=== PATIENT | female | born 1990 | race Caucasian/White ===

== ENCOUNTER 2016-08-06 15:28 | Emergency (ER) | payer OTHER ==
[~2016-08-06] VITALS: Ht 157.5 cm; Wt 68.4 kg
[~2016-08-06 15:28] MED LIST: IBUP-1050 PO
[2016-08-06 15:40] VITALS: TEMP 36.7; Ht 157.5 cm; Wt 68.4 kg
[2016-08-06] MEDS ORDERED: OXYC1TAB3 PO (15:55)
[2016-08-06] MEDS ORDERED: CLC/300 PO (15:55)
--- NOTE | 2016-08-06 15:56 | EMERGENCY ROOM VISIT NOTE ---
ED Visit Note First contact with patient: 15:43 CHIEF COMPLAINT: Toothache HISTORY OF PRESENT ILLNESS: This 26-year-old female patient presented to the emergency department via private vehicle with a progressive toothache for past 2 days. The patient believes it is coming from left upper posterior wisdom tooth. The pain is now steady and severe and radiates to the face. The patient has a dentist appointment set up for August 30 of which she is to have an extraction of her wisdom tooth. They rate their pain a 10/10 and the ibuprofen and Tylenol they have been taking has not relieved the pain. Denies facial swelling or fever. The patient denies any discharge from the mouth. REVIEW OF SYSTEMS: A 6 system review of systems was completed with positives and pertinent negatives listed in the HPI. ALLERGIES: As noted below MEDICATIONS: As noted below PMH: No pertinent past medical history SOCIAL HISTORY: Patient lives locally and is employed. PHYSICAL EXAM: Vitals are noted on the nurse's note and reviewed by myself. Vital signs stable. Temperature 36.7C orally. GENERAL: 26 rolled female, in no acute distress, nondiaphoretic, well-developed well-nourished. Mouth: The left upper posterior molar tooth is protruding laterally from the gumline without any discharge or signs of an abscess. The remainder of the pharynx and tonsils are without erythema, edema, or exudate. The airway is patent. There is no facial swelling, cervical or submandibular lymphadenopathy. The patient appears uncomfortable and in pain. The patient has overall fair dental hygiene. There is tenderness palpation overlying the tooth in the left upper posterior molar region. EARS: External auditory canals clear, tympanic membranes pearly rock without erythema or effusion bilaterally. ED COURSE: Patient was seen and evaluated as above. After obtaining a thorough history and physical examination was evident the patient is expressing pain secondary to her wisdom teeth pressing against other teeth. She appears stable for outpatient management. Should he has a dentist appointment set up. She will be treated in the outpatient setting with a short course of antibiotics in case early small developing infection, as well as pain medication. I will escalate to use prescription pain medication as she is already tried Tylenol and ibuprofen. She is to return with worsening of her symptoms. She was educated upon worrisome symptoms which to return, had questions on discharge, and was discharged home in good condition. No evidence of meningitis or sherwin angina on exam. In the evaluation and treatment of this patient, the following differential diagnoses were considered: Periapical Abscess, Osteonecrosis of the Jaw, Dental Fracture, Dental Caries, Sherwin's Angina, Vincent's Angina, Facial Cellulitis. In the treatment of this patient controlled medication was utilized and therefore the [facility], Prescription Drug Monitoring Program website was utilized to look up this patient. No concerns were identified that would prohibit or alter my treatment decision. Problem List Medical Problems: (1) No significant past medical history Status: Chronic Current/Historical Medications Scheduled Clindamycin HCl (Clindamycin HCl), 1 CAP PO TID Ibuprofen (Advil), 400 MG PO PRN UD Scheduled PRN Oxycodone Ir (Roxicodone Ir), 1-2 TAB PO Q4H PRN for Pain Allergies Coded Allergies: Penicillins (Verified Allergy, Severe, DIFFICULTY BREATHING, 08/06/16) Amoxicillin (Verified Allergy, Unknown, ANAPHYLAXIS, 08/06/16) Sulfa Antibiotics (Verified Allergy, Unknown, Hives, 08/06/16) Reported by PT. Vital Signs Date Time Temp Pulse Resp B/P (MAP) Pulse Ox O2 Delivery O2 Flow Rate FiO2 08/06/16 16:22 80 15 133/75 97 Room Air 08/06/16 15:40 36.7 117 16 134/68 92 Room Air Departure Information Impression Primary Impression: Odontalgia Dispostion Home / Self-Care Condition GOOD Prescriptions Clindamycin HCl (Clindamycin HCl) 300 Mg Cap 1 CAP PO TID for 7 Days, #21 CAP Prov: Eh Abel PA-C 08/06/16 Oxycodone Ir (Roxicodone Ir) 5 Mg Tab 1-2 TAB PO Q4H Y for Pain, #20 TAB For Initial Treatment Prov: Eh Abel PA-C 08/06/16 Referrals Diya Mejía DO (PCP) Patient Instructions My [facility] Additional Instructions You have been treated in the Emergency Department for Dental Pain. You have received pain medicine in the emergency department which impairs your ability to operate a vehicle. It is illegal for you to drive after receiving these medicines. You have been prescribed OXY IR to be used for pain control. This is a narcotic medication. You cannot drive or consume alcohol while on this medicine. This medicine should only be used for pain that cannot be controlled with over-the- counter pain medicines. You were prescribed Clindamycin to be taken three times daily. This is an antibiotic. All antibiotics have the potential to cause diarrhea. Stop this medication and contact a medical provider if you were to develop any significant adverse side effects including: wheezing, shortness of breath, passing out, vomiting, or a diffuse rash. Always take antibiotics as directed and COMPLETE the ENTIRE course regardless of the improvement of your symptoms. For pain control, you can use the following rzpm-ovx-auqbona medicines (if >12 yo): - Regular strength (325mg/tab) Tylenol (acetaminophen) 2 tabs every 4-6 hours as needed. Do not exceed 12 tablets in a 24 hour period. Avoid taking more than 3 grams (3000 mg) of Tylenol per day. This includes any other sources of acetaminophen you may take on a regular basis. - Regular strength (200 mg/tab) Advil (ibuprofen) 1-2 tabs every 4-6 hours as needed. Do not exceed a dose of 3200 mg per day. Refrain from smoking cigarettes or using chewing tobacco until you have been evaluated by your dentist. Keeping beverages lukewarm and consuming soft foods can decrease your pain. Warm compresses over the affected area may offer some relief. You MUST seek evaluation of your dental pain by a dentist following your visit to the Emergency Department. The Emergency Department is not capable of treating dental issues long-term. You should call your dentist as soon as possible to make an appointment for evaluation of your dental pain. Return to the emergency department if you develop the following symptoms despite treatment course outlined above: fever, intractable pain, increased redness, swelling, or purulent discharge. Your blood pressure was found to be slightly elevated today. Please follow up with family doctor regarding this. Please return to the emergency department with any new/concerning symptoms.
[2016-08-06 16:22] VITALS: BP 133/75; PULSE 80; O2SAT 97
== END 2016-08-06 16:24 | disposition home or self-care (01) ==
LOC: C.EDB 15:40 → C.EDD 16:24
DX: K08.89 Other specified disorders of teeth and supporting structures (principal); Z88.0 Allergy status to penicillin; Z88.1 Allergy status to other antibiotic agents; Z88.2 Allergy status to sulfonamides

== ENCOUNTER 2016-10-28 23:30 | Emergency (ER) | payer OTHER ==
[~2016-10-28] VITALS: Ht 157.5 cm; Wt 69.2 kg
[~2016-10-28 23:30] MED LIST changes: +OXYC1TAB3 PO
[2016-10-28 23:34] VITALS: BP 150/91; PULSE 106; TEMP 37.1; O2SAT 98; Ht 157.5 cm; Wt 69.2 kg
[2016-10-28] MEDS ORDERED: CLINDAMYCIN 150MG HOME PACK PO ONE (23:45)
[2016-10-28] MEDS ORDERED: CLIN300C2 PO (23:46)
--- NOTE | 2016-10-28 23:53 | EMERGENCY ROOM VISIT NOTE ---
ED Visit Note First contact with patient: 23:38 CHIEF COMPLAINT: Toothache HISTORY OF PRESENT ILLNESS: This 26 year old female patient presented to the emergency department with a progressive toothache for past 2 days. The patient believes it is coming from a left upper wisdom tooth. The patient was going to have this removed about 2 months ago, but had automobile issues and missed her appointment. She has yet to reschedule. The pain is now steady and severe and radiates to the face. They rate their pain a 8/10 and the ibuprofen and Tylenol they have been taking has not relieved the pain. Denies facial swelling or fever. The patient denies any discharge from the mouth. REVIEW OF SYSTEMS: A 6 system review of systems was completed with positives and pertinent negatives listed in the HPI. ALLERGIES: Penicillin, sulfa MEDICATIONS: See EMR PMH: See EMR SOCIAL HISTORY: Employed at the facility here PHYSICAL EXAM: Vitals are noted on the nurse's note and reviewed by myself. Vital signs stable. GENERAL: White female, in no acute distress, nondiaphoretic, well-developed well -nourished. Mouth: The left upper posterior wisdom tooth , #16, is carious, impacted, and the gum is swollen and tender around it, without any discharge or signs of an abscess. The remainder of the pharynx and tonsils are without erythema, edema, or exudate. The airway is patent. There is no facial swelling, cervical or submandibular lymphadenopathy. The patient appears uncomfortable and in pain. The patient has overall fair dental hygiene. EARS: External auditory canals clear, tympanic membranes pearly rock without erythema or effusion bilaterally. HEART: Regular rate and rhythm without murmur gallop or rub LUNG: Clear to auscultation bilateral ED COURSE: Physical exam and history were performed. Nursing notes and EMR were reviewed. The patient has dental pain for the past 2 days. Her left upper wisdom tooth appears to be impacted and is the likely cause of her discomfort. She will be started on clindamycin and asked to follow with her dentist for definitive care. She was invited back to the ER with any new, worsening, or concerning symptoms. Problem List Medical Problems: (1) No significant past medical history Status: Chronic Current/Historical Medications Scheduled Clindamycin Hcl (Cleocin), 300 MG PO QID Scheduled PRN Ibuprofen (Advil), 400 MG PO Q4 PRN for Pain Allergies Coded Allergies: Penicillins (Verified Allergy, Severe, DIFFICULTY BREATHING, 10/28/16) Amoxicillin (Verified Allergy, Unknown, ANAPHYLAXIS, 10/28/16) Sulfa Antibiotics (Verified Allergy, Unknown, Hives, 10/28/16) Reported by PT. Vital Signs Date Time Temp Pulse Resp B/P (MAP) Pulse Ox O2 Delivery O2 Flow Rate FiO2 10/28/16 23:34 37.1 106 18 150/91 98 Room Air Departure Information Impression Primary Impression: Pain, dental Dispostion Home / Self-Care Condition GOOD Prescriptions Clindamycin Hcl (CLEOCIN) 300 Mg Cap 300 MG PO QID for 10 Days, #40 CAP Prov: Berto Mishra PA-C 10/28/16 Forms HOME CARE DOCUMENTATION FORM, IMPORTANT VISIT INFORMATION Patient Instructions My [facility] Additional Instructions You were seen and evaluated today on an emergency basis only. This is not a substitute for, or an effort to provide, complete comprehensive medical care. It is not possible to recognize and treat all injuries or illnesses in a single emergency department visit. For this reason it is recommended that you followup with a dentist as soon as possible for definitive care. For baseline pain relief you may alternate ibuprofen and acetaminophen every 4 hours for pain control. Take 600 mg ibuprofen (Advil) and then 4 hours later take 1000 mg acetaminophen (Tylenol). Do not take more than 3000 mg acetaminophen in a single day. Take clindamycin 300 mg 4 times daily for the next 10 days. We recommend that you take this yogurt or probiotic as it can upset your stomach. You are welcome to return to the emergency department anytime with new, worsening, or concerning symptoms.
== END 2016-10-29 00:02 | disposition home or self-care (01) ==
LOC: C.EDB 23:31
DX: K08.89 Other specified disorders of teeth and supporting structures (principal)

== ENCOUNTER 2018-05-05 07:38 | Inpatient (IN) ==
[2018-05-05] MEDS ORDERED: LACTATED RINGER'S 1,000 ML IV PRN (08:47)
[2018-05-05] MEDS ORDERED: OXYTOCIN 30 UNITS/500 ML BAG IV PRN (08:47)
[2018-05-05] MEDS ORDERED: DINOPROSTONE 10 MG INSERT PV ONE (08:47)
--- NOTE | 2018-05-05 08:55 | History & Physical Report ---
Date of Service May 05, 2018 Assessment & Plan (1) Gestational diabetes mellitus (GDM): 28 yo at 39.4 wks with GDMA2, on insulin VSS Afebrile FHR reassuring GBS negative Plan admit, monitor, labs, pharmacy consult for insulin management Cervical ripening/ cervidil History of Present Illness Chief Complaint: Induction Primary Care Provider: Diya Mejía Patient is a 28 yo at 39.4 wks scheduled for IOL at term for GDMA2, on insulin No complaints No LOF/VB +FM No PACHECO/ Change in vision/ epig or RUQ pain Her has been complicated by 1) GDMA2, 20 u insulin in am 2) Smokes: 15 cig/day Allergies Allergy/AdvReac Type Severity Reaction Status Date / Time Penicillins Allergy Severe DIFFICULTY Verified 10/28/16 23:33 BREATHING amoxicillin Allergy Unknown ANAPHYLAXIS Verified 10/28/16 23:33 Sulfa (Sulfonamide Allergy Unknown Hives Verified 10/28/16 23:33 Antibiotics) Home Medications Home Medications Medication Instructions Recorded Confirmed Type Vitamin 1 tab PO DAILY 05/05/18 05/05/18 History insulin glargine [Lantus Solostar 20 unit SUBCUT DAILY 05/05/18 05/05/18 History U-100 Insulin] Patient History Family History Sister Diabetes Cancer Father Diabetes Hypertension Grandmother (Paternal) Diabetes Mother Cancer Social History Preferred Language: Syriac Communication Ability: Effective Beliefs That Will Affect Care: None marital status: Single Current Living Situation: Family Other Information That Helps Us Care for You: No Feels Safe at Home: Yes Safety Concerns: Feels Safe At This Time Smoking Status: Current every day smoker Hx Alcohol Use: No Hx Substance Use: No [employer] History No h/o Chlamydia/ HSV remote h/o Gonorhea 12 years ago, treated, SUSHILA negative Review of Systems All systems reviewed & are unremarkable except as noted in HPI & below Physical Exam Vital Signs (Past 24 Hours): Last Vital Signs Temp 36.4 C L 05/05/18 07:47 Pulse 97 H 05/05/18 07:50 Resp 20 05/05/18 07:47 BP 132/80 05/05/18 07:50 Constitutional: WD/WN, vitals as above well developed, well nourished and comfortable Genitourinary: Manual OB Exam: + cervical dilation 1 cm, + cervical effacement 50% and + station -2 OB Exam Monitor Tracing: + category I Vertex
[2018-05-05] MEDS ORDERED: PHARMACY GLYCEMIC MGMT CONSULT PRN (09:00)
[2018-05-05] MEDS ORDERED: BUTORPHANOL TARTRATE 1 MG/ML VIAL IV PRN (09:15)
[2018-05-05 09:21] LABS: Hematocrit (blood only) 34.8 % (37-47); Hemoglobin 11.7 g/dL (12.0-16.0); Mean Corpuscular Volume 81.9 fL (80-100); Mean Platelet Volume 9.5 fL (7.4-10.4); Platelet Count 289 K/uL (130-400); RDW Coefficient of Variation 14.4 % (11.5-14.5); RDW Standard Deviation 43.1 fL (36.4-46.3); Red Blood Count 4.25 M/uL (4.2-5.4); White Blood Count 11.92 K/uL (4.8-10.8)
[2018-05-05 09:29] LABS: Mean Corpuscular Hgb Conc 33.6 g/dL (32-36)
[2018-05-05] MEDS: LACTATED RINGER'S 1,000 ML IV SCH ×3 (09:29→21:13)
[2018-05-05 09:44] LABS: BUN Creatinine Ratio 20.9 (10-20); Calcium 9.3 mg/dl (8.5-10.1); Creatinine Clr Calc Pharmacy 144.6 ml/min; Est GFR (African American) 145.4; Est GFR (Non-African American) 125.4; Potassium 4.2 mmol/L (3.5-5.1)
--- NOTE | 2018-05-05 13:32 | Pharmacy Report ---
Glycemic Control Consultation - Date of Service May 05, 2018 - Scope Scope: Glycemic Pharmacist consulted by Dr Brito on 05/05/18 for glycemic control and to write orders per [facility] inpatient glycemic control protocol - Objective Weight: 83.461 kg Accuchecks BSG (last 24hrs): 05/05/18 05/05/18 05/05/18 09:00 09:03 11:19 Glucose 84 POC Glucose 86 88 Laboratory Data (last 24hrs): 05/05/18 09:03 Potassium 4.2 Carbon Dioxide 21 Anion Gap 8.0 Creatinine 0.58 L Est Cr Clr Drug Dosing 144.6 - Recent Pertinent Medications Outpatient Anti-diabetic Regimen: * Lantus 20 units daily * last taken this morning * only been on for 3 weeks with a titration upwards to 20 units Risk Factors for Insulin Resistance: * Diet: clear liquid diet * currently being induced - Assessment & Plan Assessment & Plan: ASSESSMENT: * Ms Molina is a 28 y/o F with a PMH of gestational diabetes, recently started on insulin as an outpatient who presents for induction. Patient did take her Lantus 20 units this morning. * The goal of treatment during the labor and delivery process is to prevent HYPOglycemia in the mainly by controlling hyperglycemia in the mother. Typically insulin requirements are reduced in labor secondary to increased work of labor and the reduced caloric intake. * With patients who are on insulin prior to hospital admission, it is recommended to use IV insulin to ensure target intrapartum blood sugar is 110 mg/dL or below. * Will check blood glucose every 2 hours currently to ensure patient's blood sugar well controlled. If blood sugar is over 120 mg/dL, start infusion with moderate stress and goal level of 72-126 mg/dL. PLAN FOR INPATIENT GLYCEMIC CONTROL: * Starting IV insulin infusion per moderate (moderate/severe) stress protocol IF blood sugars over 110 mg/dL * Goal Range 72 - 126 mg/dl * Please note that the plan above was derived based on current level of insulin resistance and hospital stress. These recommendations are appropriate for inpatient admission only. Plan of care upon discharge will need to be reassessed to avoid potential outpatient hypo/hyperglycemia. Thank you.
--- NOTE | 2018-05-05 17:41 | Obstetrical Progress Note ---
Date of Service May 05, 2018 Subjective Patient is reevaluated She feels pain, desires medication for pain VSS Afebrile FHR categ I VE: 1-2 cm/ 70%/-2, tight bag Cervidil is place Stadol for pain Continue to monitor closely Physical Exam Vital Signs (Past 24 Hours): Last Vital Signs Temp 36.4 C L 05/05/18 15:15 Pulse 77 05/05/18 16:49 Resp 18 05/05/18 15:18 BP 108/59 L 05/05/18 16:49
[2018-05-05] MEDS ORDERED: BUPIVACAINE 0.25% 30 ML VIAL ONE (20:08)
[2018-05-05] MEDS ORDERED: fentaNYL citrate 100 MCG/2 ML VIAL ONE (20:09)
[2018-05-05] MEDS ORDERED: fentaNYL 2MCG/ML ROPIV 1.25MG/ML 100 ML BAG EPI ONE (20:10)
--- NOTE | 2018-05-05 20:16 | Obstetrical Progress Note ---
Date of Service May 05, 2018 Subjective Patient is reevaluated She feels much more pain and desires epidural for pain SROM at 1945, clear VE; 3/ 70%/ -2, cervidil is removed FHR categ I Marmaduke ctxs q1-2 min Continue to monitor Epidural for pain Physical Exam Vital Signs (Past 24 Hours): Last Vital Signs Temp 36.4 C L 05/05/18 15:15 Pulse 73 05/05/18 19:11 Resp 18 05/05/18 15:18 BP 125/65 05/05/18 19:11
--- NOTE | 2018-05-05 20:47 | Anesthesiology Consultation ---
Date of Service May 05, 2018 Assessment & Plan Chart Review Chart Review: Patient NOT seen in Pre Admission Testing and Acceptable Risk for Labor Epidural Consults Requested none ASA ASA2 Proposed Anesthesia Anesthesia Type: Labor Epidural and CSE Risk / Benefits Reviewed With: PT / POA / Parent / Guardian, Accepts Plan and Informed Consent Obtained History Height/Weight Height: 5 ft 2 in Weight: 83.461 kg Allergies Allergy/AdvReac Type Severity Reaction Status Date / Time Penicillins Allergy Severe DIFFICULTY Verified 10/28/16 23:33 BREATHING amoxicillin Allergy Unknown ANAPHYLAXIS Verified 10/28/16 23:33 Sulfa (Sulfonamide Allergy Unknown Hives Verified 10/28/16 23:33 Antibiotics) Medications Home Medications Medication Instructions Recorded Confirmed Last Taken Vitamin 1 tab PO DAILY 05/05/18 05/05/18 05/04/18 11:00 insulin glargine [Lantus Solostar 20 unit SUBCUT DAILY 05/05/18 05/05/18 05/05/18 06:00 U-100 Insulin] Active Medications Generic Name Dose Route Start Last Admin Trade Name Freq PRN Reason Stop Dose Admin Butorphanol Tartrate 1 mg 05/05/18 09:15 05/05/18 17:43 Stadol IV 06/04/18 09:14 1 mg Q2HWA PRN Administration Pain Lactated Ringer's 1,000 mls @ 999 mls/hr 05/05/18 08:47 05/05/18 20:02 Lr IV 06/04/18 08:46 999 mls/hr .Q1H1M PRN Administration (Pre-Anesthesia) Lactated Ringer's 1,000 mls @ 150 mls/hr 05/05/18 09:00 05/05/18 18:00 Lr IV 05/07/18 08:59 150 mls/hr .Q6H40M ALEN Infusion Past Family History Family History Sister Diabetes Cancer Father Diabetes Hypertension Grandmother (Paternal) Diabetes Mother Cancer Past Anesthesia History No Hx of Anesthesia Complications and No Family Hx of Anesthesia Complications History of PONV No Motion Sickness Screening History of Motion Sickness: No Social History Smoking Status: Current every day smoker tobacco type: cigarettes Smoking cigarettes per day: 15 Hx Alcohol Use: No Hx Substance Use: No Exercise / Class Metabolic Activity II 4-5 Yardwork/Stairs/Walk up [place] Review of Systems no chest pain or sob Physical Exam Vital Signs Last Vital Signs Temp 36.5 C 05/05/18 20:40 Pulse 76 05/05/18 20:46 Resp 20 05/05/18 20:40 BP 134/65 05/05/18 20:39 Pulse Ox 98 05/05/18 20:46 ENMT Mouth: no TMJ abnormality Thyromental Distance: > or= 3.5 Finger Breadths Mallampati Class: II Neck normal visual inspection Respiratory normal respiratory effort Auscultation: lungs clear to auscultation bilaterally Cardiovascular Rate/Rhythm: regular rate and regular rhythm Musculoskeletal Spine: normal cervical ROM Neurologic moves all extremities Psychiatric Orientation: alert and oriented x 3 Testing Laboratory Results 05/05/18 09:03 05/05/18 09:03 05/05/18 05/05/18 05/05/18 16:29 16:28 11:19 POC Glucose 72 66 L* 88 05/05/18 09:00 POC Glucose 86
[2018-05-05] MEDS: ePHEDrine sulfate 50 MG/ML AMP ONE (21:12)
--- NOTE | 2018-05-05 23:40 | Obstetrical Progress Note ---
Date of Service May 05, 2018 Subjective Patient is reevaluated FHR had been categ I with good accels and variability Had decel to 90's while she was lying in her back and have her bladder emptied VE; 5/ 70%/ -1, coned head Patient was turned to left lateral side, O2 and IVF bolus were started. FHR back to 140's 150's Continue to monitor closely Physical Exam Vital Signs (Past 24 Hours): Last Vital Signs Temp 36.7 C 05/05/18 22:00 Pulse 88 05/05/18 23:31 Resp 18 05/05/18 23:00 BP 119/58 L 05/05/18 23:18 Pulse Ox 98 05/05/18 23:31
[2018-05-06] MEDS: LACTATED RINGER'S 1,000 ML IV SCH (00:08)
[2018-05-06] MEDS ORDERED: LACTATED RINGER'S 1,000 ML IV PRN (00:40)
[2018-05-06] MEDS ORDERED: OXYTOCIN 30 UNITS/500 ML BAG IV PRN ×2 (00:40→05:08)
[2018-05-06] MEDS ORDERED: fentaNYL 2MCG/ML ROPIV 1.25MG/ML 100 ML BAG EPI ONE (03:44)
[2018-05-06] MEDS ORDERED: CLINDAMYCIN 900 MG in DEXTROSE 5% 100 ML IV ONE (04:30)
[2018-05-06] MEDS ORDERED: SILVER NITR/POTASSIUM NITRATE APPLICATOR ONE (05:02)
[2018-05-06] MEDS ORDERED: DIPHTHERIA/TETANUS/PERTUSSIS 0.5 ML SYR/VIAL IM ONE (05:08)
[2018-05-06] MEDS ORDERED: OXYCODONE/ACETAMINOPHEN 5mg/325mg TAB PO PRN (05:08)
[2018-05-06] MEDS ORDERED: SUPERCREAM 0.870% 15 GM JAR EXT PRN (05:08)
[2018-05-06] MEDS ORDERED: BISACODYL 10 MG SUPP PR PRN (05:08)
[2018-05-06] MEDS ORDERED: BENZOCAINE 20% AER SPR 82.5 GM CAN EXT PRN (05:08)
[2018-05-06] MEDS ORDERED: HYDROCORTISONE ACETATE 25 MG SUPP PR PRN (05:08)
[2018-05-06] MEDS ORDERED: ACETAMINOPHEN 325 MG TAB PO PRN (05:08)
[2018-05-06] MEDS ORDERED: LACTATED RINGER'S 1,000 ML IV SCH (05:15)
--- NOTE | 2018-05-06 05:45 | Delivery Summary ---
DATE OF OPERATION: 05/06/2018 TIME OF DELIVERY OF BABY: 4:23 a.m. DETAILS OF DELIVERY: The patient was found to be fully dilated and desired to push. She pushed for about 25 minutes and delivered the head without difficulty. Turtle sign was noted. Nurses were notified for shoulder dystocia. The patient's legs were hyperextended with Cecille maneuver and then the posterior/ right shoulder was delivered with 2 fingers under the axilla and then anterior shoulder was delivered without difficulty and baby was handed off to the mother. Mouth and nose were suctioned. Cord was clamped x2 and cut. It was a 3-vessel cord. Then cord blood was obtained and collected in a special bag for donation per patient request. The vagina and perineum were checked for lacerations. There was a partial third-degree laceration in the posterior fourchette. It was confirmed with a rectal exam and good sphincter tone was noted. The external fibers of the sphincter and perineal body muscles were held with Allis clamps brought to the midline and they were repaired with [id number] stitches x2 and then rectal exam was repeated. Good sphincter tone was noted and no sutures were felt. Gloves were changed. Vaginal mucosa was repaired with 2-0 Vicryl in a running fashion, skin in a subcuticular fashion. Excellent hemostasis was achieved. Then placenta was found to be in the vagina and delivered spontaneous as intact and complete. Uterus was explored. There were small membranes inside, those were retrieved with ringed forceps. Then her lower segment was cleared of all clots and debris. Fundus was firm. EBL was 250 mL. Mom and baby tolerated the procedure well. Sponge, lap, and needle count was correct x2. Baby was a viable female infant, Apgars 8/10, and weight is 3345gr. No complications happened and I was present during whole procedure. I attest to the content of the Intraoperative Record and any orders documented therein. Any exceptions are noted below. MTDD
[2018-05-06] MEDS: ePHEDrine sulfate 50 MG/ML AMP ONE (06:39)
--- NOTE | 2018-05-06 07:48 | Anesthesia Procedure Note ---
Date of Service May 06, 2018 Anesthesia Post Epidural Note Vital Signs Vital Signs: Temp Pulse Resp BP Pulse Ox 37.2 C 106 H 18 116/65 97 05/06/18 01:30 05/06/18 07:19 05/06/18 01:30 05/06/18 07:19 05/06/18 04:47 Notes Mental Status: alert / awake / arousable and participated in evaluation Nausea / Vomiting: adequately controlled Pain: adequately controlled Airway Patency, RR, SpO2: stable & adequate BP & HR: stable & adequate Hydration State: stable & adequate Neuraxial Anesthesia: was administered and sensory block is resolving Anesthetic Complications: no major complications apparent and Pt Satisfied with anesthetic care Epidural: Removed without complications and With tip intact
[2018-05-06] MEDS: FERROUS SULFATE 325 MG TAB PO SCH (09:19)
[2018-05-06] MEDS: DOCUSATE SODIUM 100 MG CAP PO SCH ×2 (09:19→20:45)
[2018-05-06] MEDS: IBUPROFEN 600 MG TAB PO PRN ×2 (09:20→19:28)
[2018-05-06] MEDS: PRENATAL VITAMIN 1 TAB PO SCH (09:20)
--- NOTE | 2018-05-06 15:02 | Pharmacy Report ---
Pharmacy Glycemic Short Note 2 - Date of Service May 06, 2018 - Glycemic Short BSG Results (Last 24 hours): 05/05/18 05/05/18 05/05/18 16:28 16:29 21:41 POC Glucose 66 L* 72 78 OUTPATIENT ANTIDIABETIC REGIMEN: * Lantus 20 units SQ daily (titrated upwards over three weeks) ASSESSMENT: * Patient delivered baby yesterday evening. Did not require insulin infusion during labor. * Since delivery, patient's blood sugars will not be checked. Recommend follow- up at outpatient provider. PLAN FOR DISCHARGE: * Recommend follow-up with outpatient provider to ensure resolution of diabetes.
[2018-05-06] MEDS ORDERED: BISACODYL 5 MG TABEC PO SCH (20:00)
[2018-05-07 07:19] LABS: Hematocrit (blood only) 28.2 % (37-47); Hemoglobin 9.3 g/dL (12.0-16.0); Mean Corpuscular Volume 82.9 fL (80-100); Mean Platelet Volume 9.4 fL (7.4-10.4); Platelet Count 219 K/uL (130-400); RDW Coefficient of Variation 14.8 % (11.5-14.5); RDW Standard Deviation 44.4 fL (36.4-46.3); White Blood Count 17.69 K/uL (4.8-10.8)
--- NOTE | 2018-05-07 08:38 | Obstetrical Progress Note ---
Date of Service May 07, 2018 Subjective Patient is seen and examined. She feels well, no complaints. Likes to be discharged Ambulating without dizziness Voiding without difficulty Tolerating regular diet with out N&V Bleeding is minimal No fever/ chills/ CP/ SOB/ N&V/ Leg pain Breast feeding without problems Vital Signs Temp Pulse Resp BP Pulse Ox 05/07/18 08:00 36.9 C 83 18 102/65 99 05/07/18 03:00 37.0 C 81 18 109/67 05/06/18 23:50 37.1 C 81 18 95/47 L 05/06/18 19:22 36.4 C L 86 18 112/73 100 05/06/18 15:45 36.3 C L 94 H 18 108/65 97 05/06/18 12:00 36.6 C 88 18 101/65 97 05/07/18 Range/Units 06:58 WBC 17.69 H (4.8-10.8) K/uL RBC 3.40 L (4.2-5.4) M/uL Hgb 9.3 L (12.0-16.0) g/dL Hct 28.2 L (37-47) % MCV 82.9 (80-100) fL MCH 27.4 (25-34) pg MCHC 33.0 (32-36) g/dL RDW Std Deviation 44.4 (36.4-46.3) fL RDW Coeff of Kaye 14.8 H (11.5-14.5) % Plt Count 219 (130-400) K/uL MPV 9.4 (7.4-10.4) fL PE: General: Alert, orientedx3, NAD Abd: soft, NT, fundus firm, below Umbilicus Perineum intact, Lochia rubra minimal Ext; NT, no edema AP: 28 yo s/p , ppd# 1 VSS Afebrile doing well Continue routine care Desires d/c home All questions were answered Physical Exam Vital Signs (Past 24 Hours): Last Vital Signs Temp 36.9 C 05/07/18 08:00 Pulse 83 05/07/18 08:00 Resp 18 05/07/18 08:00 BP 102/65 05/07/18 08:00 Pulse Ox 99 05/07/18 08:00
[2018-05-07] MEDS: DOCUSATE SODIUM 100 MG CAP PO SCH ×2 (08:48→20:47)
[2018-05-07] MEDS: PRENATAL VITAMIN 1 TAB PO SCH (08:48)
[2018-05-07] MEDS: FERROUS SULFATE 325 MG TAB PO SCH (08:49)
--- NOTE | 2018-05-07 09:26 | Pharmacy Report ---
Pharmacy Glycemic Short Note 2 - Date of Service May 07, 2018 - Glycemic Short OUTPATIENT ANTIDIABETIC REGIMEN: * Lantus 20 units SQ daily (titrated upwards over three weeks) ASSESSMENT: * Patient with gestational diabetes, using insulin during . * Patient is post- and no blood sugar checks have been performed since delivery. * Insulin has been discontinued. * Pharmacy is signing off of case at this time. PLAN FOR DISCHARGE: * Recommend follow-up with outpatient provider to ensure resolution of diabetes.
[2018-05-07 14:51] VITALS: O2SAT 96
[2018-05-07 21:12] VITALS: BP 119/79; PULSE 90; TEMP 98.2
[2018-05-08 07:02] LABS: Basophils # (auto) 0.01 K/uL (0-0.2); Basophils % (auto) 0.1 %; Eosinophils # (auto) 0.18 K/uL (0-0.5); Eosinophils % (auto) 1.3 %; Hematocrit (blood only) 30.1 % (37-47); Hemoglobin 10.1 g/dL (12.0-16.0); Immature Granulocytes # (auto) 0.05 K/uL (0.00-0.02); Immature Granulocytes % (auto) 0.4 %; Lymphocytes # (auto) 2.57 K/uL (1.2-3.4); Lymphocytes % (auto) 19.2 %; Mean Corpuscular Hgb Conc 33.6 g/dL (32-36); Mean Corpuscular Volume 82.9 fL (80-100); Mean Platelet Volume 9.2 fL (7.4-10.4); Monocytes # (auto) 0.74 K/uL (0.11-0.59); Monocytes % (auto) 5.5 %; Neutrophils # (auto) 9.85 K/uL (1.4-6.5); Neutrophils % (auto) 73.5 %; Platelet Count 257 K/uL (130-400); RDW Coefficient of Variation 14.8 % (11.5-14.5); RDW Standard Deviation 45.1 fL (36.4-46.3); Red Blood Count 3.63 M/uL (4.2-5.4)
[2018-05-08] MEDS: FERROUS SULFATE 325 MG TAB PO SCH (09:31)
[2018-05-08] MEDS: DOCUSATE SODIUM 100 MG CAP PO SCH (09:31)
[2018-05-08] MEDS: PRENATAL VITAMIN 1 TAB PO SCH (09:31)
[2018-05-08] MEDS: IBUPROFEN 600 MG TAB PO PRN (09:39)
--- NOTE | 2018-05-08 09:54 | Obstetrical Progress Note ---
Date of Service May 08, 2018 Physical Exam Vital Signs (Past 24 Hours): Last Vital Signs Temp 36.8 C 05/07/18 20:35 Pulse 90 05/07/18 20:35 Resp 18 05/07/18 20:35 BP 119/79 05/07/18 20:35 Pulse Ox 96 05/07/18 13:05 Constitutional: WD/WN, vitals as above comfortable Results & Data Diagnostic Findings Laboratory Results - last 48 hr 05/07/18 05/08/18 06:58 06:47 WBC 17.69 H 13.40 H RBC 3.40 L 3.63 L Hgb 9.3 L 10.1 L Hct 28.2 L 30.1 L MCV 82.9 82.9 MCH 27.4 27.8 MCHC 33.0 33.6 RDW Std Deviation 44.4 45.1 RDW Coeff of Kaye 14.8 H 14.8 H Plt Count 219 257 MPV 9.4 9.2 Immature Gran % (Auto) 0.4 Neut % (Auto) 73.5 Lymph % (Auto) 19.2 [place] % (Auto) 5.5 Eos % (Auto) 1.3 Baso % (Auto) 0.1 Immature Gran # (Auto) 0.05 H Neut # (Auto) 9.85 H Lymph # (Auto) 2.57 [place] # (Auto) 0.74 H Eos # (Auto) 0.18 Baso # (Auto) 0.01 Abdomen soft and non-tender fundus firm no calf pain or edema for discharge
== END 2018-05-08 14:00 | disposition home or self-care (01) | DRG 768 ==
LOC: 4S1 07:38 → 4N 05-06 08:11 → 4S2 05-06 16:55

== ENCOUNTER 2021-05-01 17:24 | Inpatient (IN) ==
[2021-05-01 18:32] LABS: Basophils # (auto) 0.02 K/uL (0-0.2); Basophils % (auto) 0.2 %; Eosinophils # (auto) 0.15 K/uL (0-0.5); Eosinophils % (auto) 1.4 %; Hematocrit (blood only) 37.1 % (37-47); Hemoglobin 11.6 g/dL (12.0-16.0); Immature Granulocytes # (auto) 0.02 K/uL (0.00-0.02); Immature Granulocytes % (auto) 0.2 %; Lymphocytes # (auto) 2.94 K/uL (1.2-3.4); Lymphocytes % (auto) 27.3 %; Mean Corpuscular Hemoglobin 23.2 pg (25-34); Mean Corpuscular Hgb Conc 31.3 g/dL (32-36); Mean Corpuscular Volume 74.1 fL (80-100); Mean Platelet Volume 10.2 fL (7.4-10.4); Monocytes # (auto) 0.44 K/uL (0.11-0.59); Monocytes % (auto) 4.1 %; Neutrophils # (auto) 7.18 K/uL (1.4-6.5); Neutrophils % (auto) 66.8 %; Platelet Count 335 K/uL (130-400); RDW Coefficient of Variation 15.8 % (11.5-14.5); RDW Standard Deviation 43.4 fL (36.4-46.3); Red Blood Count 5.01 M/uL (4.2-5.4); White Blood Count 10.75 K/uL (4.8-10.8)
[2021-05-01 18:45] LABS: Albumin Globulin Ratio 1.6 (0.9-2); Albumin Level 4.3 gm/dl (3.4-5.0); BUN Creatinine Ratio 13.9 (10-20); Bilirubin,Total 0.2 mg/dl (0.2-1.0); Calcium 10.1 mg/dl (8.5-10.1); Creatinine Clr Calc Pharmacy 110.7 ml/min; Est GFR (African American) 129.3 ml/min; Est GFR (Non-African American) 111.6 ml/min; Globulin 2.7 gm/dl (2.5-4.0); Potassium 3.8 mmol/L (3.5-5.1)
[2021-05-01 18:52] LABS: Appearance Urine Clear (Clear); Bacteria Urine Automated 1+ (Negative); Bilirubin Urine Negative (Negative); Blood Urine Negative (Negative); Color Urine Yellow; Epithelial Cell Urine Auto >30 /lpf (0-5); Glucose Urine UA Negative (Negative); Ketones Urine Negative (Negative); Leukocyte Esterase Urine 2+ (Negative); Nitrite Urine Negative (Negative); Protein Urine Negative (Negative); RBC Urine Automated 0-4 /hpf (0-4); Specific Gravity Urine 1.006 (1.000-1.030); Urobilinogen Urine Negative (Negative)
[2021-05-01] MEDS ORDERED: SODIUM CHLORIDE 0.9% 1000ML 1,000 ML IV ONE (20:05)
[2021-05-01] MEDS ORDERED: ONDANSETRON INJ 2 MG/ML 2 ML VIAL IV STA (20:05)
[2021-05-01] MEDS ORDERED: KETOROLAC TROMETHAMINE 15 MG/ML VIAL IV ONE (20:05)
--- NOTE | 2021-05-01 20:10 | Emergency Department Note ---
Impression & Plan Acute cholecystitis, Abdominal pain ED Provider Note NAME: JACOB CARRILLO AGE: 31 SEX: F : 1990 ARRIVES VIA: Walk-In INFORMANT: Patient ED PROVIDER(S): Graham Owens DO CHIEF COMPLAINT: abdominal pain HPI: Patient is a 31-year-old female who presents ER for epigastric abdominal pain located on the right side. This has been coming and going for quite some time. Started back up this morning. Generally worse with eating. Denies any nausea or vomiting. No dysuria, urgency, or frequency. Pain is about 3-4 out of 10. No other exacerbating or remitting factors. She has never had this followed up with anyone. She notes it is about a 4 out of 10 and fairly constant and dull ache at this point. ROS: See above HPI for pertinent positives & negatives. A total of 10 systems reviewed and were otherwise negative. PAST MEDICAL HISTORY:See Below PAST SURGICAL HISTORY:See Below FAMILY HISTORY:See Below SOCIAL HISTORY:See Below HOME MEDICATIONS:See Below ALLERGIES:See Below VITALS:See Below PHYSICAL EXAMINATION: GENERAL: Sitting up in bed, alert, well appearing, well nourished, no distress, non-toxic EYE EXAM: normal conjunctiva. OROPHARYNX: no exudate, no erythema, lips, buccal mucosa, and tongue normal and mucous membranes are moist NECK: supple, no nuchal rigidity, no adenopathy, non-tender LUNGS: Clear to auscultation. Normal chest wall mechanics HEART: no murmurs, S1 normal and S2 normal ABDOMEN: abdomen soft, mild tenderness in the right upper quadrant, normo-active bowel sounds, no masses, no rebound or guarding. UPPER EXTREMITIES: upper extremities are grossly normal. LOWER EXTREMITIES: No pitting edema. NEURO EXAM: Normal sensorium, cranial nerves II-XII grossly intact, normal speech, no gross weakness of arms, no gross weakness of legs. MEDICAL DECISION MAKING: Patient is a 31-year-old female who presents ER for above-stated complaint. IV was established blood was obtained. Labs show no significant leukocytosis. Mild anemia 11.6. BMP along with LFTs bilirubin and lipase is unremarkable. UA was contaminated. negative. Covid negative. Ultrasound shows likely cholecystitis with stone stuck in the neck. Patient was given IV fluids, Zofran, morphine and Rocephin. She was updated bedside. She was discussed with general surgery who evaluated her and admitted her to the hospital. Triage Nursing notes reviewed. Limited review of prior medical records performed Vital Signs: reviewed and remarkable for no significant abnormalities Differential diagnosis: Differential diagnoses includes but is not limited to gastritis, peptic ulcer disease, GERD, gallbladder disease, pancreatitis, small bowel obstruction, acute coronary syndrome, pericarditis, ischemic bowel, irritable bowel disease, irritable bowel syndrome, appendicitis, diverticulitis, malignancy, hernia, urinary tract infection, torsion, /ectopic (if female), perforation, trauma, infectious. ER treatment provided: See below Diagnostics interpreted by me: ECG: none Cardiac Monitoring: An order was placed for continuous cardiac monitoring. The monitor shows a rate of 80 with sinus rhythm. Laboratory studies: As stated above and show below. Imaging studies: Ultrasound shows acute cholecystitis Consultation(s): Discussed with Viktor Liz for further evaluation Procedures: none Critical Care: None Past Med/Surg History Family History Sister Diabetes Cancer Father Diabetes Hypertension Grandmother (Paternal) Diabetes Mother Cancer Social History Smoking Status: Never smoker Cigarettes Per Day: 15; Hx Alcohol Use: No Hx Substance Use: No Preferred Language: Estonian Communication Ability: Effective Tare Weigher Required: No Beliefs That Will Affect Care: None marital status: Single Current Living Situation: Spouse Other Information That Helps Us Care for You: No Feels Safe at Home: Yes Safety Concerns: Feels Safe At This Time Assistive Devices: None Allergies Allergies Allergy/AdvReac Type Severity Reaction Status Date / Time Penicillins Allergy Severe DIFFICULTY Verified 05/01/21 20:34 BREATHING amoxicillin Allergy Unknown ANAPHYLAXIS Verified 05/01/21 20:34 Sulfa (Sulfonamide Allergy Unknown Hives Verified 05/01/21 20:34 Antibiotics) Home Meds Home Medications Medication Instructions Recorded Confirmed No Known Home Medications 05/01/21 05/01/21 Results & Data (ED) Vital Signs Vital Signs - 24 hr 05/01/21 17:32 05/01/21 22:31 Temperature 36.9 C Temperature Source Temporal Artery Scan Pulse Rate 105 H 84 Respiratory Rate 16 22 Blood Pressure 132/84 145/79 H Blood Pressure Mean 100 101 Pulse Oximetry 100 96 Oxygen Delivery Method Room Air Room Air Sepsis Recent Fever Within 48 Hours No Sepsis New/Unexplained Change in Mental Status N/A Sepsis Action Taken by Nursing No Action Required Laboratory Data Result diagrams: 05/01/21 18:10 05/01/21 18:10 Lab Results 05/01/21 05/01/21 05/01/21 Range/Units 18:10 18:10 21:54 WBC 10.75 (4.8-10.8) K/uL RBC 5.01 (4.2-5.4) M/uL Hgb 11.6 L (12.0-16.0) g/dL Hct 37.1 (37-47) % MCV 74.1 L (80-100) fL MCH 23.2 L (25-34) pg MCHC 31.3 L (32-36) g/dL RDW Std Deviation 43.4 (36.4-46.3) fL RDW Coeff of Kaye 15.8 H (11.5-14.5) % Plt Count 335 (130-400) K/uL MPV 10.2 (7.4-10.4) fL Immature Gran % (Auto) 0.2 % Neut % (Auto) 66.8 % Lymph % (Auto) 27.3 % [place] % (Auto) 4.1 % Eos % (Auto) 1.4 % Baso % (Auto) 0.2 % Neut # (Auto) 7.18 H (1.4-6.5) K/uL Lymph # (Auto) 2.94 (1.2-3.4) K/uL [place] # (Auto) 0.44 (0.11-0.59) K/uL Eos # (Auto) 0.15 (0-0.5) K/uL Baso # (Auto) 0.02 (0-0.2) K/uL Immature Gran # (Auto) 0.02 (0.00-0.02) K/uL Sodium 136 (136-145) mmol/L Potassium 3.8 (3.5-5.1) mmol/L Chloride 104 (98-107) mmol/L Carbon Dioxide 26 (21-32) mmol/L Anion Gap 6 (3-11) BUN 10 (6-23) mg/dl Creatinine 0.72 (0.6-1.2) mg/dl Est Cr Clr Drug Dosing 110.7 ml/min Est GFR ( Amer) 129.3 ml/min Est GFR (Non-Af Amer) 111.6 ml/min BUN/Creatinine Ratio 13.9 (10-20) Glucose 121 H (70-99(Fasting)) mg/dl Calcium 10.1 (8.5-10.1) mg/dl Total Bilirubin 0.2 (0.2-1.0) mg/dl AST 11 L (13-39) U/L ALT 7 (7-52) U/L Alkaline Phosphatase 56 (34-104) U/L Total Protein 7.0 (6.0-8.3) gm/dl Albumin 4.3 (3.4-5.0) gm/dl Globulin 2.7 (2.5-4.0) gm/dl Albumin/Globulin Ratio 1.6 (0.9-2) Lipase 26 (11-82) U/L SARS-CoV-2, RNA, NAAT NEGATIVE (NEGATIVE) Administered Medications Discontinued Medications Sodium Chloride (Nss 1000ml) 1,000 mls @ 999 mls/hr IV .Q1H1M ONE Stop: 05/01/21 21:05 Last Infusion: 05/01/21 21:48 Dose: 0 mls/hr Documented by: [id number] Admin: 05/01/21 20:33 Dose: 999 mls/hr Documented by: [id number] Ceftriaxone Sodium (Rocephin) 1,000 mg in 50 mls @ 100 mls/hr IV NOW STA Stop: 05/01/21 22:22 Last Infusion: 05/01/21 23:17 Dose: 0 mls/hr Documented by: [id number] Admin: 05/01/21 22:19 Dose: 100 mls/hr Documented by: [id number] Ketorolac Tromethamine (Ketorolac Tromethamine 15 Mg/Ml Vial) 15 mg IV NOW ONE Stop: 05/01/21 20:06 Last Admin: 05/01/21 20:33 Dose: 15 mg Documented by: [id number] Ondansetron HCl (Ondansetron Inj 2 Mg/Ml 2 Ml Vial) 4 mg IV NOW STA Stop: 05/01/21 20:06 Last Admin: 05/01/21 20:33 Dose: 4 mg Documented by: [id number] Imaging Data Radiologist's Impression: Gallbladder Ultrasound 05/01/21 20:05 ABDOMINAL ULTRASOUND, RIGHT UPPER QUADRANT HISTORY: Right upper quadrant abdominal pain.. COMPARISON: Abdomen CT 04/07/2007. FINDINGS: Pancreas: The pancreas demonstrates a normal echotexture. Liver: Unremarkable. Gallbladder: The gallbladder is filled with sludge and stones. There is a nonmobile stone at the neck of the gallbladder measuring 1.5 cm. The techno logist reported a positive sonographic Terry sign. Mild gallbladder wall thickening measuring 4 mm. CBD: 2 mm. Right kidney: No hydronephrosis. IMPRESSION: The gallbladder is completely filled with stones and sludge. There is a 1.5 cm stone which appears impacted at the gallbladder neck. In conjunction with the mild gallbladder wall thickening and positive sonographic Terry's sign, this likely represents acute cholecystitis. Surgical consultation recommended. ACT 112: Negative or not required by law. Electronically signed by: Sanya Pope M.D. 05/01/2021 9:10 PM Discharge Plan Visit Data Chief Complaint: Abdominal Pain Stated Complaint: ABD PAIN ED Provider: Graham Owens Discharge Problem: Acute cholecystitis, Abdominal pain Patient Disposition: Admitted As Inpatient Discharge Instructions Interventions: ED Discharge Assessment Last Done: 05/01/21 23:21 Discharge Problem: Abdominal pain Qualifiers: Abdominal location: unspecified location Qualified Code(s): R10.9 - Unspecified abdominal pain
--- NOTE | 2021-05-01 21:12 | Ultrasound Report ---
ABDOMINAL ULTRASOUND, RIGHT UPPER QUADRANT HISTORY: Right upper quadrant abdominal pain.. COMPARISON: Abdomen CT 04/07/2007. FINDINGS: Pancreas: The pancreas demonstrates a normal echotexture. Liver: Unremarkable. Gallbladder: The gallbladder is filled with sludge and stones. There is a nonmobile stone at the neck of the gallbladder measuring 1.5 cm. The technologist reported a positive sonographic Terry sign. M ild gallbladder wall thickening measuring 4 mm. CBD: 2 mm. Right kidney: No hydronephrosis. IMPRESSION: The gallbladder is completely filled with stones and sludge. There is a 1.5 cm stone which appears im pacted at the gallbladder neck. In conjunction with the mild gallbladder wall thickening and positive sonographic Terry's sign, this likely represents acute cholecystitis. Surgical consultation recomme nded. ACT 112: Negative or not required by law. Electronically signed by: Sanya Pope M.D. 05/01/2021 9:10 PM
[2021-05-01] MEDS ORDERED: cefTRIAXone SODIUM 1,000 MG/50 ML BAG IV STA (21:53)
--- NOTE | 2021-05-01 22:31 | History & Physical Report ---
Date of Service May 01, 2021 Assessment & Plan (1) Acute cholecystitis: Plan: Due to the patient's clinical presentation and imaging she will be admitted to the hospital we proceed as follows: Analgesia will be provided Antiemetics will be provided We will administer antibiotics. As the patient has a penicillin allergy I will utilize Cipro and Flagyl. We will provide hydration with IV fluids We will make the patient n.p.o. after midnight tonight. We will await results of patient's test as well as Covid testing I have discussed with the patient the findings on her imaging and I recommended she undergo cholecystectomy. She is tenably scheduled for a laparoscopic, possible open cholecystectomy with Dr. Liz tomorrow. I discussed the risks, benefits, alternatives, and expected postop course with the patient. She wishes to proceed. We will use SCDs for DVT prevention, no chemical means due to planned surgery She will be a level 1 full code History of Present Illness Chief Complaint: Abdominal pain Primary Care Provider: Bo Stephenson MD This is a 31-year-old female who presented to [facility] emergency department secondary abdominal pain. Patient notes that she has been having upper abdominal pain for "several months". She notes that the pain usually occurs at night and self resolves and oftentimes occurs 20 to 30 minutes after eating a meal. She has had associated nausea vomiting with her pain in the past but has not had that today. When she gets the pain she denies any fevers, shakes, chills. She denies any associated diarrhea or emesis of blood. Patient notes that she again had this pain this morning which was an unusual presentation for her. 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 She noted that the reason that she presented to the emergency department was that her pain occurred in unusual nature atypical what usually occurs. Patient also added that she has had an appendectomy in the past but has not had no additional abdominal surgeries. Today in the emergency department the patient had labs and imaging which independent reviewed. A gallbladder ultrasound showed that her gallbladder was nearly completely filled with stones and sludge and an apparent 1.5 cm stone with potential impaction in the gallbladder neck. She had mild gallbladder wall thickening up to 4 mm. The interpreting radiologist felt that this could represent acute cholecystitis. Labs include a CBC her white blood cell count hematocrit were normal. Her hematocrit was slightly low at 11.6. Platelet count was noted be normal. Chemistry profile showed sodium, potassium, BUN, and creatinine were all noted to be normal. There is no elevation of patient's bilirubin, transaminases, alkaline phosphatase, or lipase. Urinalysis was not indicative of infection. A Covid test is pending and a test is pending. At the time of my interview the patient was resting comfortably in bed and she was in no distress. Allergies Allergy/AdvReac Type Severity Reaction Status Date / Time Penicillins Allergy Severe DIFFICULTY Verified 05/01/21 20:34 BREATHING amoxicillin Allergy Unknown ANAPHYLAXIS Verified 05/01/21 20:34 Sulfa (Sulfonamide Allergy Unknown Hives Verified 05/01/21 20:34 Antibiotics) Home Medications Medication Instructions Recorded Confirmed Type No Known Home Medications 05/01/21 05/01/21 History Past Med/Surg History Family History Sister Diabetes Cancer Father Diabetes Hypertension Grandmother (Paternal) Diabetes Mother Cancer Social History Smoking Status: Never smoker Cigarettes Per Day: 15; Hx Alcohol Use: No Hx Substance Use: No Preferred Language: Rw[place]an Communication Ability: Effective Cooker Tender Required: No Beliefs That Will Affect Care: None marital status: Single Current Living Situation: Spouse Other Information That Helps Us Care for You: No Feels Safe at Home: Yes Safety Concerns: Feels Safe At This Time Assistive Devices: None Review of Systems Constitutional: no fever and no chills Eyes: no diplopia Ear, Nose, Mouth, Throat: no ear pain Respiratory: no cough and no dyspnea Cardiovascular: no chest pain Gastrointestinal: + abdominal pain, + nausea and + vomiting Genitourinary: no dysuria Musculoskeletal: no back pain Integumentary: no rash Neurologic: no localized weakness Physical Exam Constitutional: WD/WN, vitals as above Eyes: no conjunctival abnormality ENMT: Ears: no hearing impairment and no external ear abnormality Mouth: no oropharynx abnormality Neck: trachea midline Respiratory: normal respiratory effort; no respiratory distress and no labored breathing Cardiovascular: Rate/Rhythm: regular rate and regular rhythm Gastrointestinal (Abdomen): Abdomen is soft and nondistended. There is no rebound tenderness or guarding. Patient did have pain with palpation in the epigastric area and to a greater degree the right upper quadrant. Terry sign was noted to be positive. Musculoskeletal: No calf tenderness Skin: no rashes Neurologic: moves all extremities Psychiatric: A+Ox3, euthymic affect Results & Data Results & Data ([facility]) Vital Signs (Past 12 Hours) Vital Signs Temp Pulse Resp BP Pulse Ox 05/01/21 17:32 36.9 C 105 H 16 132/84 100 PG Care Time/CCT Total # of Minutes Spent Total Time Spent with Patient: Total time spent is greater than 50% in coordination of care (as documented) at patient's floor/unit and/or counseling patient: Coding Level of Care Code 93221 Initial Inpt Care Lvl 3 Diagnoses Acute cholecystitis K81.0
[2021-05-01] MEDS ORDERED: ACETAMINOPHEN 1,000 MG/100 ML VIAL IV PRN (22:34)
[2021-05-01] MEDS ORDERED: ONDANSETRON INJ 2 MG/ML 2 ML VIAL IV PRN (22:34)
[2021-05-02] MEDS: MoRPHine SULFATE 4 MG/ML 1 ML CARP\\VIAL IV PRN ×5 (00:07→22:35)
[2021-05-02] MEDS: LACTATED RINGER'S 1,000 ML IV SCH ×2 (00:08→13:55)
[2021-05-02] MEDS: CIPROFLOXACIN / D5W 400 MG/200 ML BAG IV SCH ×2 (01:11→14:31)
[2021-05-02 05:33] LABS: Pregnancy Test, Urine Negative (Negative)
[2021-05-02 07:16] LABS: Basophils # (auto) 0.02 K/uL (0-0.2); Basophils % (auto) 0.3 %; Eosinophils % (auto) 2.7 %; Hematocrit (blood only) 30.3 % (37-47); Hemoglobin 9.6 g/dL (12.0-16.0); Immature Granulocytes # (auto) 0.01 K/uL (0.00-0.02); Immature Granulocytes % (auto) 0.1 %; Lymphocytes # (auto) 3.26 K/uL (1.2-3.4); Lymphocytes % (auto) 44.2 %; Mean Corpuscular Hemoglobin 23.3 pg (25-34); Mean Corpuscular Hgb Conc 31.7 g/dL (32-36); Mean Corpuscular Volume 73.5 fL (80-100); Mean Platelet Volume 10.4 fL (7.4-10.4); Monocytes # (auto) 0.63 K/uL (0.11-0.59); Monocytes % (auto) 8.5 %; Neutrophils # (auto) 3.25 K/uL (1.4-6.5); Neutrophils % (auto) 44.2 %; Platelet Count 279 K/uL (130-400); RDW Coefficient of Variation 15.8 % (11.5-14.5); RDW Standard Deviation 43.1 fL (36.4-46.3); Red Blood Count 4.12 M/uL (4.2-5.4); White Blood Count 7.37 K/uL (4.8-10.8)
[2021-05-02 08:24] LABS: Albumin Globulin Ratio 1.7 (0.9-2); Albumin Level 3.3 gm/dl (3.4-5.0); BUN Creatinine Ratio 13.7 (10-20); Bilirubin,Total 0.3 mg/dl (0.2-1.0); Calcium 8.4 mg/dl (8.5-10.1); Est GFR (African American) 127.2 ml/min; Est GFR (Non-African American) 109.7 ml/min; Total Protein 5.3 gm/dl (6.0-8.3)
[2021-05-02] MEDS ORDERED: ONDANSETRON INJ 2 MG/ML 2 ML VIAL ONE (10:16)
[2021-05-02] MEDS ORDERED: DEXAMETHASONE SOD INJ 4 MG/ML VIAL ONE (10:16)
[2021-05-02] MEDS ORDERED: LIDOCAINE 2% 2 ML VIAL/AMP(20MG/ML) INFIL ONE (10:16)
[2021-05-02] MEDS ORDERED: PROPOFOL IV EMULSION 10 MG/ML 20 ML VIAL IV ONE (10:16)
[2021-05-02] MEDS ORDERED: ROCURONIUM BROMIDE 10 MG/ML 5 ML VIAL IV ONE (10:16)
[2021-05-02] MEDS ORDERED: GLYCOPYRROLATE 0.2 MG/ML VIAL ONE (10:16)
[2021-05-02] MEDS ORDERED: fentaNYL citrate 100 MCG/2 ML VIAL ONE ×2 (10:16→11:52)
[2021-05-02] MEDS ORDERED: NEOSTIGMINE METHYLSULFATE 1 MG/ML 10ML VIAL ONE (10:16)
[2021-05-02] MEDS ORDERED: MIDAZOLAM HCL 1 MG/ML 2ML VIAL ONE (10:16)
[2021-05-02] MEDS ORDERED: EPINEPHrine INJ 1 MG/ML AMP ONE (11:05)
[2021-05-02] MEDS ORDERED: BUPIVACAINE 0.5 % 5 MG/1 ML MPF 30ML VIAL ONE (11:05)
[2021-05-02] MEDS ORDERED: ePHEDrine sulfate 50 MG/ML AMP IV PRN (11:17)
[2021-05-02] MEDS ORDERED: ONDANSETRON INJ 2 MG/ML 2 ML VIAL IV PRN (11:17)
[2021-05-02] MEDS ORDERED: PROMETHAZINE HCL 12.5 MG in SODIUM CHLORIDE 0.9% 50 ML IV PRN (11:17)
[2021-05-02] MEDS ORDERED: ATROPINE SULFATE 0.1 MG/ML 10ML SYR IV PRN (11:17)
[2021-05-02] MEDS ORDERED: HYDROmorphone INJ 2 MG/ML SYR/VIAL IV PRN (11:17)
--- NOTE | 2021-05-02 11:17 | Anesthesiology Consultation ---
Date of Service May 02, 2021 Assessment & Plan Chart Review Chart Review: Acceptable Risk for Surgery Consults Requested none History Surgery Operation Date: 05/02/21 12:00 Proposed Procedures p Laparoscopic Cholecystectomy Possible Windy - Rashi Liz DO Height/Weight Height: 5 ft 2 in Weight: 79.5 kg Allergies Allergy/AdvReac Type Severity Reaction Status Date / Time Penicillins Allergy Severe DIFFICULTY Verified 05/01/21 20:34 BREATHING amoxicillin Allergy Unknown ANAPHYLAXIS Verified 05/01/21 20:34 Sulfa (Sulfonamide Allergy Unknown Hives Verified 05/01/21 20:34 Antibiotics) Medications Home Medications Medication Instructions Recorded Confirmed Last Taken No Known Home Medications 05/01/21 05/01/21 Unknown Active Medications Generic Name Dose Route Start Last Admin Trade Name Freq PRN Reason Stop Dose Admin Lactated Ringer's 1,000 mls @ 75 mls/hr 05/01/21 22:45 05/02/21 05:37 Lr IV 05/31/21 22:44 75 mls/hr .[id number] ALEN Infusion Ciprofloxacin 400 mg in 200 mls @ 100 mls/hr 05/01/21 22:45 05/02/21 03:15 Cipro / D5w IV 05/11/21 22:44 Infused Q12H ALEN Infusion Protocol Morphine Sulfate 3 mg 05/01/21 22:34 05/02/21 09:57 Morphine Sulfate 4 Mg/Ml 1 Ml Carp\Vial IV 05/15/21 22:33 3 mg Q3H PRN Administration Pain NPO Date Last Intake of Fluids: 05/01/21 Time Last Intake of Fluids: 10:00 Date Last Intake of Solids: 05/01/21 Time Last Intake of Solids: 10:00 Past Family History Family History Sister Diabetes Cancer Father Diabetes Hypertension Grandmother (Paternal) Diabetes Mother Cancer Social History Smoking Status: Never smoker tobacco type: cigarettes Smoking cigarettes per day: 15 Hx Alcohol Use: No Hx Substance Use: No Physical Exam Vital Signs Last Vital Signs Temp 36.8 C 05/02/21 10:38 Pulse 93 H 05/02/21 10:38 Resp 18 05/02/21 10:38 BP 106/71 05/02/21 10:38 Pulse Ox 99 05/02/21 10:38 Testing Laboratory Results 05/02/21 06:29 05/02/21 06:29 Urine Color Yellow 05/01/21 Unknown Urine Appearance Clear (Clear) 05/01/21 Unknown Urine pH 6.0 (4.5-7.5) 05/01/21 Unknown Ur Specific [place] 1.006 (1.000-1.030) 05/01/21 Unknown Urine Protein Negative (Negative) 05/01/21 Unknown Urine Glucose (UA) Negative (Negative) 05/01/21 Unknown Urine Ketones Negative (Negative) 05/01/21 Unknown Urine Nitrite Negative (Negative) 05/01/21 Unknown Ur Leukocyte Esterase 2+ (Negative) H 05/01/21 Unknown Urine WBC (Auto) 5-10 /hpf (0-5) H 05/01/21 Unknown Urine RBC (Auto) 0-4 /hpf (0-4) 05/01/21 Unknown U Hyaline Cast (Auto) 1-5 /lpf (0-5) 05/01/21 Unknown U Epithel Cells (Auto) >30 /lpf (0-5) H 05/01/21 Unknown Urine Bacteria (Auto) 1+ (Negative) H 05/01/21 Unknown Urine Test Negative (Negative) 05/02/21 05:05 05/02/21 05/01/21 05:05 Unknown Urine Test Negative POC Ur Test Pending
--- NOTE | 2021-05-02 11:20 | History & Physical Bridge Note ---
Date of Service May 02, 2021 History & Physical Bridge Note I have examined the patient, reviewed the History & Physical and in the interval since the performance of the History & Physical I have noted the following changes of clinical significance: no changes noted pt seen. feeling better than yesterday. discussed w/u and options. recommend lap lana. discussed risks ( bleeding/infection/blood clots/injury to bile ducts or bile leaks/injury to other organs etc...) questions answered. will proceed with lap lana today.
--- NOTE | 2021-05-02 12:36 | Operative Report ---
PG Post Operative Report Pre & Post Diagnosis Operation Date: 05/02/21 12:00 Pre-Op Diagnosis: Acute cholecystitis Post-Op Diagnosis: Acute cholecystitis I identified the patient and participated in the time-out.: Yes Procedure Operation Date: 05/02/21 12:00 Actual Procedures p Laparoscopic Cholecystectomy(Not Applicable) - Rashi Liz DO Surgeon Rashi Liz DO Ob/Gyn guero Ortiz Estimated Blood Loss 10 Findings Consistent with Post-Op Diagnosis Specimens gallbladder Description of Procedure After informed consent was obtained the patient was taken to the operating room and placed in the supine position. After successful intubation the abdomen was sterilely prepped and draped in usual fashion. A periumbilical incision was made with an 11 blade scalpel and carried down through the soft tissue using electrocautery. The anterior rectus fascia was opened using electrocautery and 2 #0 Vicryl stay sutures were placed. The peritoneum was elevated with hemostats and incised under direct vision using Metzenbaum scissors. A finger sweep was performed and a 12 mm Garduno trocar was placed. The abdomen was insufflated to 18 mmHg. The laparoscope was inserted and the abdomen was examined in 360. No gross abnormalities were identified. A subxiphoid 5 mm port and 2 right upper quadrant 5 mm ports were placed under direct vision. The patient was placed in a reverse Trendelenburg position and slightly airplaned to the left. The gallbladder was acutely inflammed. The gallbladder was grasped and elevated superiorly and laterally. A [place] dissector was used to take down adhesions around the neck of the gallbladder. The cystic duct was identified and skeletonized. It was clipped twice proximally and once distally and transected using a laparoscopic scissor. In similar fashion the cystic artery was identified and skeletonized clipped and divided. The gallbladder was removed from the gallbladder fossa with electrocautery. It was placed into an Endo Catch bag. Thorough irrigation was performed. At the end of the procedure there was adequate hemostasis and no evidence of any bile leaks. A final look around the abdomen showed no other abnormalities. The gallbladder and trochars were all removed and the abdomen was desufflated. The fascia of the camera port was closed using 0 Vicryl in a [id number] fashion. All the wounds were irrigated and closed using 4-0 Monocryl. Marcaine was injected around them for postoperative analgesia and skin glue used as a dressing. The patient was awaken extubated and transferred to recovery in stable condition. My physician's medical laboratory assistant was present throughout the entire case... helped with prepping the patient. With exposure for trocar placement, as well as retracted the gallbladder throughout the case and also assisted with wound closure and dressing placement. I attest to the content of the Intraoperative Record and any orders documented therein. Any exceptions are noted below.
[2021-05-02] MEDS: fentaNYL citrate 100 MCG/2 ML VIAL IV PRN ×4 (12:47→13:03)
[2021-05-02] MEDS ORDERED: MoRPHine SULFATE 2 MG/ML CARP IM PRN (13:47)
[2021-05-02] MEDS ORDERED: HYDROCODONE/ACETAMOPHEN 5/325MG TAB PO PRN (13:47)
--- NOTE | 2021-05-02 14:48 | Anesthesiology Progress Note ---
Date of Service May 02, 2021 Anesthesia Post Procedure Vital Signs Vital Signs: Temp Pulse Pulse Pulse Resp BP BP 05/02/21 14:43 88 16 112/72 05/02/21 14:15 36.7 C 79 16 105/65 05/02/21 13:45 37.0 C 64 16 110/74 05/02/21 13:20 36.9 C 70 14 118/69 05/02/21 13:10 97 H 14 119/67 05/02/21 13:00 60 14 114/56 L 05/02/21 12:50 88 14 107/75 05/02/21 12:40 85 18 140/84 05/02/21 12:33 36.6 C 107 H 16 131/81 05/02/21 10:38 36.8 C 93 H 18 106/71 05/02/21 07:50 36.9 C 85 16 98/60 L 05/01/21 23:30 36.9 C 97 H 16 128/77 05/01/21 23:21 82 22 130/87 05/01/21 22:31 84 22 145/79 H 05/01/21 17:32 36.9 C 105 H 16 132/84 Pulse Ox 05/02/21 14:43 95 05/02/21 14:15 95 05/02/21 13:45 97 05/02/21 13:20 94 05/02/21 13:10 94 05/02/21 13:00 98 05/02/21 12:50 98 05/02/21 12:40 100 05/02/21 12:33 98 05/02/21 10:38 99 05/02/21 07:50 98 05/01/21 23:30 99 05/01/21 23:21 97 05/01/21 22:31 96 05/01/21 17:32 100 Pain Intensity Right Upper Abdomen: Pain Intensity: 6 Transfer of Care Handoff Completed per policy Notes Mental Status: alert / awake / arousable and participated in evaluation Patient Amnestic to Procedure: Yes Nausea / Vomiting: adequately controlled Pain: adequately controlled Airway Patency, RR, SpO2: stable & adequate BP & HR: stable & adequate Hydration State: stable & adequate Anesthetic Complications: no major complications apparent
[2021-05-02] MEDS: HYDROCODONE/ACETAMOPHEN 5/325MG TAB PO PRN (20:13)
[2021-05-03] MEDS: CIPROFLOXACIN / D5W 400 MG/200 ML BAG IV SCH (02:12)
[2021-05-03] MEDS: HYDROCODONE/ACETAMOPHEN 5/325MG TAB PO PRN (07:38)
--- NOTE | 2021-05-03 08:09 | Surgery Progress Note ---
Date of Service May 03, 2021 Assessment & Plan (1) Acute cholecystitis: Plan: POD#1 laparoscopic cholecystectomy Patient doing well Tolerating a diet, pain controlled Plan for discharge to home today Asking for diflucan for home- can prescribe a dose Dispo instructions reviewed, f/u in clinic within 1-[address] Liz Admission and Anticipated Discharge Date Admission Date: May 01, 2021 Subjective Patient feeling well. No nausea/vomiting. Tolerating a diet. Some expected post surgical pain. Ready to go home. Physical Exam Physical Exam: awake/alert Gastrointestinal (Abdomen): Inspection/Auscultation: + abdominal surgical incision (c/d/i with some nely-incisional ecchymosis); abdomen not distended Percussion/Palpation: + abdomen tender (nely-incisional ttp) and abdomen soft Results & Data ([facility]) Vital Signs (Past 12 Hours) Vital Signs Temp Pulse Resp BP Pulse Ox 05/03/21 07:41 36.9 C 91 H 16 105/61 98 05/03/21 07:07 36.9 C 91 H 16 105/61 98 05/03/21 04:07 36.9 C 97 H 18 103/63 95 05/02/21 22:19 37.2 C 95 H 16 114/70 96 PG Care Time/CCT Total # of Minutes Spent Total Time Spent with Patient: Total time spent is greater than 50% in coordination of care (as documented) at patient's floor/unit and/or counseling patient: Coding Level of Care Code None Diagnoses Acute cholecystitis K81.0
== END 2021-05-03 09:15 | disposition home or self-care (01) | DRG 419 ==
LOC: ED 17:24 → 3E 22:34